=== PATIENT | female | born 1945 | race Caucasian/White ===

== ENCOUNTER 2017-12-09 23:49 | Emergency (ER) | payer MEDICARE, OTHER ==
[2017-12-10 00:13] VITALS: TEMP 98.4
--- NOTE | 2017-12-10 02:02 | ED ---
General Adult HPI - General Chief complaint: Abdominal Pain Stated complaint: abd pain Time Seen by Provider: 12/10/17 00:50 Source: patient, RN notes reviewed, Caregiver Mode of arrival: ambulatory Limitations: no limitations - History of Present Illness Initial comments: 72-year-old female process to the emergency department for a chief complaint of right lower abdominal pain times one day. Patient states she was carrying up a basket up the stairs when she felt a sudden pain in her right abdomen. Patient states she has been having normal bowel movements. Patient denies any pain with urination or burning with urination or frequency of urination.. Patient denies any nausea or vomiting. Patient states she had a nosebleed earlier today and has been coughing up blood since the nose bleed occurred. Patient is not on any blood thinners. Patient denies any shortness of breath or history of asthma. Patient denies any fevers or chills at home. Patient has been able to eat and drink normally. Patient has no other complaints at this time including shortness of breath, chest pain, nausea or vomiting, headache, or visual changes. 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 - Related Data Home Medications Medication Instructions Recorded Confirmed Unable To Assess [Unable to Assess] 12/09/17 12/09/17 Allergies Allergy/AdvReac Type Severity Reaction Status Date / Time No Known Allergies Allergy Verified 12/09/17 20:04 Review of Systems ROS Statement: Those systems with pertinent positive or pertinent negative responses have been documented in the HPI. ROS Other: All systems not noted in ROS Statement are negative. Past Medical History Past Medical History: Diabetes Mellitus History of Any Multi-Drug Resistant Organisms: None Reported Past Surgical History: No Surgical Hx Reported Past Psychological History: No Psychological Hx Reported Smoking Status: Current some day smoker Past Alcohol Use History: None Reported Past Drug Use History: None Reported General Exam Limitations: no limitations General appearance: alert, in no apparent distress Head exam: Present: atraumatic, normocephalic, normal inspection Eye exam: Present: normal appearance. Absent: scleral icterus, conjunctival injection ENT exam: Present: normal exam, normal oropharynx (no blood in the posterior oropharynx), mucous membranes moist Neck exam: Present: normal inspection, full ROM. Absent: tenderness, meningismus, lymphadenopathy Respiratory exam: Present: normal lung sounds bilaterally. Absent: respiratory distress, wheezes, rales, rhonchi, stridor Cardiovascular Exam: Present: regular rate, normal rhythm, normal heart sounds. Absent: systolic murmur, diastolic murmur, rubs, gallop, clicks GI/Abdominal exam: Present: soft, tenderness (Right lower quadrant tenderness. Mild RUQ tenderness, neg romero sign. No tenderness elsewhere in the abdomen), normal bowel sounds. Absent: distended, guarding, rebound, rigid Back exam: Absent: tenderness, vertebral tenderness (no lumbar spine tenderness) Neurological exam: Present: alert, oriented X3, CN II-XII intact Psychiatric exam: Present: normal affect, normal mood Course Vital Signs 12/10/17 12/10/17 00:10 03:55 Temperature 98.4 F Pulse Rate 103 H 101 H Respiratory 18 16 Rate Blood Pressure 127/81 140/72 O2 Sat by Pulse 98 98 Oximetry Medical Decision Making - Medical Decision Making 72-year-old female presents to the emergency department for a chief complaint of right lower quadrant abdominal pain times one day. Patient states she has been having normal bowel movements. Patient denies fevers or chills at home. Denies any pain with urination. Patient has also been coughing up blood. This started after she had a nosebleed earlier this afternoon which is now controlled at time of presentation. Patient denies being on blood thinners. CBC unremarkable with a hemoglobin of 11.7. CMP unremarkable. No anion gap. Urinalysis shows possible evidence of infection. Urine will be cultured. Chest x-ray shows subsegmental atelectasis in the right upper lobe, otherwise negative. CT shows large calcified gallstones. No dilated ducts. Normal appendix. No evidence of renal stone or obstruction. There are lumbar compression fractures are most likely old. Patient has no new injuries or back pain or tenderness. Patients' EKG has a ventricular rate of 86 with NSR. Patient states she would wants to leave and go home. Patient did wait for results after discussing that we'd soon have everything back. She is feeling better at this time with the abdominal pain. I did discuss following up with general surgery for possible gallstones causing pain in the abdomen. Patient will also follow up with primary care. Patient is likely experiencing coughing up blood from the nosebleed she had earlier today. No hemoptysis was seen in the emergency department. Patient will also follow up with primary care for this. She will return to the emergency Department if she has any worsening symptoms or if hemoptysis continues or if she has another nosebleed. - Lab Data Lab Results 12/10/17 Range/Units 03:34 Urine Color Light Yellow Urine Appearance Clear (Clear) Urine pH 6.0 (5.0-8.0) Ur Specific [place] >1.050 H (1.001-1.035) Urine Protein Trace H (Negative) Urine Glucose (UA) Negative (Negative) Urine Ketones Negative (Negative) Urine Blood Trace H (Negative) Urine Nitrite Negative (Negative) Urine Bilirubin Negative (Negative) Urine Urobilinogen <2.0 (<2.0) mg/dL Ur Leukocyte Esterase Large H (Negative) Urine RBC 23 H (0-5) /hpf Urine WBC 16 H (0-5) /hpf Ur Squamous Epith Cells 4 (0-4) /hpf Urine Mucus Rare H (None) /hpf Disposition Clinical Impression: Abdominal pain, Gallbladder stone without cholecystitis or obstruction Disposition: HOME SELF-CARE Condition: Good Instructions: Abdominal Pain (ED) Additional Instructions: Please follow-up with primary care and general surgery in 1-2 days for abdominal pain and gallstones. Please follow-up for cough as well. Return to the emergency department if you have any worsening symptoms or if you are continuing to cough up blood. Is patient prescribed a controlled substance at d/c from ED?: No Referrals: Frank Barnett DO [STAFF PHYSICIAN] - 1-2 days Agustín Holley MD [STAFF PHYSICIAN] - 1-2 days Time of Disposition: 03:49
--- NOTE | 2017-12-10 02:52 | XR ---
EXAMINATION TYPE: XR chest 2V DATE OF EXAM: 12/10/2017 COMPARISON: NONE HISTORY: Cough and congestion TECHNIQUE: Frontal and lateral views of the chest are obtained. FINDINGS: Heart and mediastinum are normal. There is some linear density along the right minor fissu re. The other lung gil are clear. There is no pleural effusion. Bony thorax is intact. IMPRESSION: Subsegmental atelectasis in the right upper lobe. Normal heart.
--- NOTE | 2017-12-10 02:56 | CT ---
EXAMINATION TYPE: CT abdomen pelvis w con DATE OF EXAM: 12/10/2017 COMPARISON: None HISTORY: right flank pain CT DLP: 351.90 mGycm Automated exposure control for dose reduction was used. TECHNIQUE: Helical acquisition of images was performed from the lung bases through the pelvis. CONTRAST: Performed without Oral Contrast and with IV Contrast, patient injected with 100 mL of Isovue 300. FINDINGS: There is small linear density at the left posterior lung base. There is no pleural effusion. There is no pericardial effusion. Liver shows no focal defect. There are calcified gallstones. Spleen appears normal. There is no pancr eatic mass. There is no adrenal mass. Kidneys show satisfactory contrast opacification. There is no hydronephrosi s. There is no retroperitoneal adenopathy. There is no ascites. Appendix appears normal. I see no int estinal wall thickening. There are no dilated loops. Bladder distends smoothly. There is no pelvic ma ss. Uterus is anteverted. There is 25% wedging of L5. There is 40% wedging of L1 vertebra. There is osteopenia. IMPRESSION: LARGE CALCIFIED GALLSTONES. NO DILATED DUCTS. NORMAL APPENDIX. NO EVIDENCE OF RENAL STONE OR OBSTRUCT ION. LUMBAR COMPRESSION FRACTURES ARE PROBABLY OLD.
[2017-12-10] MEDS ORDERED: MORPHINE SULFATE 4 MG/ML SYRINGE IVP STA (03:39)
[2017-12-10] MEDS ORDERED: ONDANSETRON 4 MG/2 ML VIAL IVP STA (03:39)
[2017-12-10 03:55] VITALS: BP 140/72; PULSE 101; RESP 16
[2017-12-10 04:13] LABS: Appearance,Urine Clear (Clear); Bilirubin,Urine Negative (Negative); Blood,Urine Trace (Negative); Color,Urine Light Yellow; Glucose,Urine (UA) Negative (Negative); Ketones,Urine Negative (Negative); Leukocyte Esterase,Urine Large (Negative); Mucus,Urine Rare /hpf; Nitrite,Urine Negative (Negative); Protein,Urine Trace (Negative); RBC,Urine 23 /hpf (0-5); Squamous Epithelial Cell,Urine 4 /hpf (0-4); Urobilinogen,Urine <2.0 mg/dL (<2.0); WBC,Urine 16 /hpf (0-5)
[2017-12-10 04:14] LABS: Specific Gravity,Urine >1.050 (1.001-1.035)
== END 2017-12-10 03:58 | disposition home or self-care (01) ==
LOC: EC 23:49
DX: K80.20 Calculus of gallbladder without cholecystitis without obstruction (principal); J98.11 Atelectasis; R04.0 Epistaxis; R04.2 Hemoptysis; F17.200 Nicotine dependence, unspecified, uncomplicated; Z87.81 Personal history of (healed) traumatic fracture
CPT/HCPCS: 81001; 87086; 71046; 74177; 99284; 96374; 96375; J2270; J2405; Q9967